=== PATIENT | female | born 1950 | race Caucasian/White ===

== ENCOUNTER 2025-04-28 08:22 | Outpatient (CLI) | payer MEDICARE, BC ==
[2025-04-28] MEDS ORDERED: iohexol 300mg/ml 100ml inj. ONE (09:00)
[2025-04-28 09:05] LABS: CREATININE 0.87 MG/DL (0.40-0.90); TOTAL CARBON DIOXIDE 28.6 MMOL/L (24-32); eGFR 63 ML/MIN
--- NOTE | 2025-04-28 11:28 | RADIOLOGY REPORT ---
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 Axial images were reconstru cted and additional sagittal and coronal images were reformatted. arterial phase imaging were perfor med. Postprocessing was also performed on a Separate workstation. 3D images were performed on a dedicated workstation and reviewed for reporting. Radiation Dose : CT Dose: CTDI volume is 14.9 mGy. Dose-length product is 792.3 mGy*cm FINDINGS: Vascular: There is normal caliber of abdominal aorta without evidence of aortic dissection or aneurysm. The m esenteric, and bilateral renal, iliac and femoral arteries are widely patent without any focal steno sis or aneurysm. Lung Bases: No acute or significant lung base finding. Normal heart size. No pleural or pericardial effusion. Liver: The liver is normal in size. No focal lesions. Normal hepatic vascular enhancement. Gallbladder and Biliary Tree: Unremarkable Spleen: Unremarkable Pancreas: The pancreas is normal in appearance without focal lesions or abnormal enhancement. Adrenal Glands: Unremarkable Kidneys: Kidneys demonstrate normal symmetric enhancement without focal lesions, calculi or hydroneph rosis. Bladder: Unremarkable Bowel: The stomach is grossly normal in appearance. Moderate volume diffuse colonic stool. Diverticul osis. Normal appendix is visualized in the right lower quadrant without findings of appendicitis. Ascites: Absent Lymphadenopathy: No mesenteric, retroperitoneal or periportal lymphadenopathy. Abdominal Wall and Mesentery: Unremarkable. Vasculature: The visualized abdominal aorta is normal in size and caliber. Abdominal and pelvic vess els demonstrate normal enhancement. Vascular calcifications of the aorta. Pelvic Organs: Unremarkable Musculoskeletal: No aggressive focal bony lesions, acute fractures or dislocation. IMPRESSION: No evidence of acute aneurysm, dissection, or intramural hematoma. Scattered vascular atherosclerotic disease. Moderate volume colonic stool.
== END 2025-04-28 23:59 | disposition home or self-care (01) ==
LOC: RAD 08:22
PROVIDERS: ATTEND Physician Assistant Medical
DX: K57.90 Diverticulosis of intestine, part unspecified, without perforation or abscess without bleeding (principal); I70.8 Atherosclerosis of other arteries; I70.0 Atherosclerosis of aorta; I72.4 Aneurysm of artery of lower extremity; R53.83 Other fatigue; R79.9 Abnormal finding of blood chemistry, unspecified; R19.7 Diarrhea, unspecified
CPT/HCPCS: 36415; 74174; 80053; Q9967